=== PATIENT | female | born 1990 | race Caucasian/White ===

== ENCOUNTER 2016-04-16 09:17 | Emergency (ER) | payer OTHER ==
[2016-04-16 09:30] VITALS: BP 130/63; PULSE 78; RESP 16; TEMP 98.1; O2SAT 98
--- NOTE | 2016-04-16 09:36 | UCPHY ---
H & P Time Seen by Provider: 04/16/16 09:25 Patient Type: New HPI/ROS: CHIEF COMPLAINT: White spots on throat HPI: The patient is a 25-year-old female with no significant past medical history. She complains of noticing a few white spots on her tonsils yesterday. She denies throat pain, fever or difficulty swallowing. REVIEW OF SYSTEMS: Aside from elements discussed in the HPI, a comprehensive 10-point review of systems was reviewed and is negative. PMH: None significant. SOCIAL HISTORY: None significant. FAMILY HISTORY: Reviewed, noncontributory PHYSICAL EXAM: General:Patient is alert, in no acute distress. ENT: There is no erythema or exudate. The patient has scattered few tonsiliths present on her bilateral tonsils. Neuro: Oriented x3. Normal motor function. Normal sensory function. Smoking Status: Never smoked Constitutional: Initial Vital Signs Temperature (C) 36.7 C 04/16/16 09:28 Heart Rate 78 04/16/16 09:28 Respiratory Rate 16 04/16/16 09:28 Blood Pressure 130/63 H 04/16/16 09:28 O2 Sat (%) 98 04/16/16 09:28 O2 Delivery Mode Room Air Allergies/Adverse Reactions: No Known Allergies Allergy (Verified 04/16/16 09:30) Home Medications: Medication Instructions Recorded NK [No Known Home Meds] 04/16/16 MDM/Departure - [facility] ED Course/Re-evaluation: This is a young healthy patient who noticed white spots on her throat which are undoubtedly simply tonsiliths. There is no evidence of pharyngitis or infectious process. The patient was reassured and instructed to do salt water gargles. - Depart Disposition: Home, Routine, Self-Care Clinical Impression: Tonsillolith Condition: Good Instructions: Pharyngitis (ED) Additional Instructions: The white spots in your throat are called TONSOLITHS and are nothing to worry about. You can try gargling with mild salt water to get rid of them, but they are not contagious and should not cause a problem. Return for fever or sore throat. Referrals: NONE *PRIMARY CARE P,. [Primary Care Provider] - As per Instructions - PQRS PQRS Measurement: 134: Depression screening and followup, PRIME MD-PHQ2 (12 years and older) Over the last 2 weeks, how often have you been bothered by any of the following problems? 1. Feeling down, depressed, or hopeless? 2. Little interest or pleasure in doing things? Patient answered no to both 1 and 2 130: Documentation of medications. Reviewed all patient medications, doses, route and frequency. 226: Do you smoke? No. 51: 18 years old and older with diagnosis of COPD, spirometry performance. Spirometry not performed; equipment not available. Patient has no history of COPD 52: 18 years old and older with COPD and symptoms of COPD or FEV1<60% predicted prescribed a B Agonist. Spirometry not performed; equipment not available.
== END 2016-04-16 09:42 | disposition home or self-care (01) ==
LOC: CED 09:17
DX: J35.8 Other chronic diseases of tonsils and adenoids (principal)
CPT/HCPCS: 99202-PO; G0463-PO

== ENCOUNTER 2016-05-05 18:02 | Emergency (ER) | payer OTHER ==
[2016-05-05 18:22] VITALS: BP 133/83; PULSE 105; RESP 16; TEMP 98.6; O2SAT 97
[2016-05-05 19:03] LABS: % IMMATURE GRANULYOCYTES 0.2 % (0.0-1.1); ABSOLUTE IMMATURE GRANULOCYTES 0.02 10^3/uL (0.00-0.10); ADD DIFF? NO; ADD MORPH? NO; ADD SCAN? NO; ATYPICAL LYMPHOCYTE FLAG 60 (0-99); FRAGMENT RBC FLAG 0 (0-99); HEMATOCRIT 37.3 % (38.0-47.0); HEMOGLOBIN 12.9 g/dL (12.6-16.3); LEFT SHIFT FLG 0 (0-99); LIPEMIA HEMOLYSIS FLAG 90 (0-99); MEAN CELL HEMOGLOBIN 29.2 pg (27.9-34.1); MEAN CELL HEMOGLOBIN CONCENTR. 34.6 g/dL (32.4-36.7); MEAN CELL VOLUME 84.4 fL (81.5-99.8); MEAN PLATELET VOLUME 9.3 fL (8.7-11.7); PLATELET CLUMPS FLAG 0 (0-99); PLATELET COUNT 214 10^3/uL (150-400); RED BLOOD CELL COUNT 4.42 10^6/uL (4.18-5.33)
--- NOTE | 2016-05-05 19:08 | UCPHY ---
H & P Time Seen by Provider: 05/05/16 18:10 Patient Type: Established HPI/ROS: 25-year-old female with sore throat for greater than 2 weeks actually improving in his just finished 1 round of 10 days of amoxicillin. Smoking Status: Never smoked Constitutional: Initial Vital Signs Temperature (C) 37 C 05/05/16 18:08 Heart Rate 105 H 05/05/16 18:08 Respiratory Rate 16 05/05/16 18:08 Blood Pressure 133/83 H 05/05/16 18:08 O2 Sat (%) 97 05/05/16 18:08 O2 Delivery Mode Room Air Allergies/Adverse Reactions: No Known Allergies Allergy (Verified 05/05/16 18:07) Home Medications: Medication Instructions Recorded AZITHROMYCIN [Z-PACK] 250 mg PO DAILY #6 tab 05/05/16 Medical Decision Making - Data Points Laboratory Results: Laboratory Results 05/05/16 18:48 05/05/16 05/05/16 05/05/16 Unknown 18:48 18:48 WBC 10.37 10^3/uL H 10^3/uL (3.80-9.50) RBC 4.42 10^6/uL 10^6/uL (4.18-5.33) Hgb 12.9 g/dL g/dL (12.6-16.3) Hct 37.3 % L % (38.0-47.0) MCV 84.4 fL fL (81.5-99.8) MCH 29.2 pg pg (27.9-34.1) MCHC 34.6 g/dL g/dL (32.4-36.7) RDW 12.0 % % (11.5-15.2) Plt Count 214 10^3/uL 10^3/uL (150-400) MPV 9.3 fL fL (8.7-11.7) Neut % (Auto) 62.0 % % (39.3-74.2) Lymph % (Auto) 31.6 % % (15.0-45.0) [place] % (Auto) 5.0 % % (4.5-13.0) Eos % (Auto) 0.8 % % (0.6-7.6) Baso % (Auto) 0.4 % % (0.3-1.7) Nucleat RBC Rel Count 0.0 % % (0.0-0.2) Absolute Neuts (auto) 6.43 10^3/uL 10^3/uL (1.70-6.50) Absolute Lymphs (auto) 3.28 10^3/uL H 10^3/uL (1.00-3.00) Absolute Monos (auto) 0.52 10^3/uL 10^3/uL (0.30-0.80) Absolute Eos (auto) 0.08 10^3/uL 10^3/uL (0.03-0.40) Absolute Basos (auto) 0.04 10^3/uL 10^3/uL (0.02-0.10) Absolute Nucleated RBC 0.00 10^3/uL 10^3/uL (0-0.01) Immature Gran % 0.2 % % (0.0-1.1) Immature Gran # 0.02 10^3/uL 10^3/uL (0.00-0.10) Monoscreen NEGATIVE (NEGATIVE) Group A Strep Screen Group A Strep DNA Pending 05/05/16 18:21 WBC RBC Hgb Hct MCV MCH MCHC RDW Plt Count MPV Neut % (Auto) Lymph % (Auto) [place] % (Auto) Eos % (Auto) Baso % (Auto) Nucleat RBC Rel Count Absolute Neuts (auto) Absolute Lymphs (auto) Absolute Monos (auto) Absolute Eos (auto) Absolute Basos (auto) Absolute Nucleated RBC Immature Gran % Immature Gran # Monoscreen Group A Strep Screen NEGATIVE (NEGATIVE) Group A Strep DNA Departure - Departure Disposition: Home, Routine, Self-Care Clinical Impression: Acute pharyngitis Condition: Good Instructions: Pharyngitis (ED) Referrals: NONE *PRIMARY CARE P,. [Primary Care Provider] - As per Instructions Prescriptions: AZITHROMYCIN [Z-PACK] 250 mg PO DAILY #6 tab - PQRS PQRS Measurement: Not applicable
== END 2016-05-05 19:36 | disposition home or self-care (01) ==
LOC: CED 18:02
DX: J02.9 Acute pharyngitis, unspecified (principal)
CPT/HCPCS: 85025-PO; 86308-PO; 87880-PO; G0463-PO